=== PATIENT | female | born 1980 | race Caucasian/White ===

== ENCOUNTER 2023-03-06 12:44 | Emergency (ER) | payer SELFPAY ==
[2023-03-06 12:55] VITALS: RESP 18; BMI 46.0
[2023-03-06] MEDS ORDERED: oxyCODONE HCL 5 MG TABLET PO ONE (13:23)
[2023-03-06] MEDS ORDERED: SODIUM CHLORIDE 0.9% 500 ML INFUS.BAG IV ONE (13:53)
[2023-03-06 14:27] LABS: BASO % 0.7 % (0-2.0); EOS % 3.6 % (0-4.5); HEMATOCRIT 39.3 % (32.4-45.2); HEMOGLOBIN 12.9 GM/dL (10.7-15.3); LYMPH % 40.1 % (8-40); MCHC 32.9 g/dl (32.0-36.0); MEAN PLT VOLUME 7.9 fl (7.5-11.1); MONO % 10.7 % (3.8-10.2); NEUT % 44.9 % (42.8-82.8); PLATELET COUNT 624 10^3/uL (134-434); RBC 4.46 M/mm3 (3.60-5.2); RDW 16.1 % (11.6-15.6); WHITE BLOOD COUNT 15.8 K/mm3 (4.0-10.0)
[2023-03-06] MEDS ORDERED: morphine CARPU-JECT 4 MG/1 ML DISP.SYRIN IVPUSH ONE (15:03)
[2023-03-06] MEDS ORDERED: morphine SULFATE 4 MG/ML VIAL ONE (15:05)
[2023-03-06 15:09] LABS: CALCIUM 9.3 mg/dL (8.5-10.1)
[2023-03-06 15:10] LABS: ALBUMIN 3.9 g/dl (3.4-5.0)
[2023-03-06 15:11] LABS: BILIRUBIN,TOTAL 0.2 mg/dL (0.2-1); TOT PROT 7.2 g/dl (6.4-8.2)
[2023-03-06 15:13] LABS: CREATININE 0.8 mg/dL (0.55-1.3)
[2023-03-06] MEDS ORDERED: AMOX TR/POT CLAV 875MG/125MG TABLETS (FP) PO ONE (18:15)
[2023-03-06] MEDS ORDERED: AMOX TR/POT CLAV 875MG/125MG TABLETS (FP) ONE (18:25)
[2023-03-06 18:45] VITALS: BP 155/89; PULSE 97; TEMP 98.2
== END 2023-03-06 18:45 | disposition home or self-care (01) ==
LOC: JER 12:44
PROC: 3E033GC Introduction of Other Therapeutic Substance into Peripheral Vein, Percutaneous Approach (ICD-10-PCS; principal; 2023-03-06)
DX: S00.502A Unspecified superficial injury of oral cavity, initial encounter (principal); D32.0 Benign neoplasm of cerebral meninges; R68.84 Jaw pain; X58.XXXA Exposure to other specified factors, initial encounter
CPT/HCPCS: 36415; 70488-TC; 80053; 85025; 99285-25; Q9967